=== PATIENT | female | born 1955 | race Caucasian/White ===

== ENCOUNTER 2016-09-18 18:50 | Outpatient (CLI) | payer OTHER ==
--- NOTE | 2016-09-18 21:40 | Ultrasound Preliminary Report ---
Exam: US Duplex Ext Veins Bilateral IMPRESSION: No evidence for deep venous thrombosis bilaterally. [facility] SITE ID: [id number]
--- NOTE | 2016-09-18 21:43 | Ultrasound Report ---
EXAM: BILATERAL LOWER EXTREMITY VENOUS ULTRASOUND EXAM DATE: 09/18/2016 07:49 PM. CLINICAL HISTORY: PAINFUL BILATERAL LOWER EXTREMITY PITTING EDEMA. COMPARISON: None. TECHNIQUE: Real-time sonographic vascular imaging was performed by the hospice volunteer coordinator through the lower extremities utilizing both color-flow and Doppler spectral analysis. Multiple practice representative static i mages were saved for review. FINDINGS: Right: Common Femoral Vein (CFV): Normal. CFV-GSV Junction: Normal. Profunda Femoral Vein (PFV): Normal. Femoral Vein (FV) Prox: Normal. Femoral Vein (FV) Mid: Normal. Femoral Vein (FV) Dist: Normal. Popliteal Vein: Normal. Posterior Tibial Veins: Normal. Peroneal Veins: Normal. Left: Common Femoral Vein (CFV): Normal. CFV-GSV Junction: Normal. Profunda Femoral Vein (PFV): Normal. Femoral Vein (FV) Prox: Normal. Femoral Vein (FV) Mid: Normal. Femoral Vein (FV) Dist: Normal. Popliteal Vein: Normal. Posterior Tibial Veins: Normal. Peroneal Veins: Normal. Other: None. IMPRESSION: No evidence for deep venous thrombosis bilaterally. [facility] Referring Provider Line: [phone] SITE ID: [id number]
== END 2016-09-18 18:51 | disposition home or self-care (01) ==
LOC: DI 18:50
DX: R60.0 Localized edema (principal); M79.662 Pain in left lower leg; M79.661 Pain in right lower leg
CPT/HCPCS: 93970

== ENCOUNTER 2017-01-10 07:45 | Outpatient (CLI) | payer OTHER ==
[2017-01-10] MEDS ORDERED: GADOBUTROL 10 MMOL/10 ML VIAL ONE (08:03)
== END 2017-01-10 07:46 | disposition home or self-care (01) ==
LOC: DI 07:45
PROVIDERS: ATTEND Internal Medicine Rheumatology
DX: Z53.9 Procedure and treatment not carried out, unspecified reason (principal)

== ENCOUNTER 2017-02-21 19:40 | Emergency (ER) | payer OTHER ==
[2017-02-21 20:02] LABS: BASOPHILS % (AUTO) 0.4 %; EOSINOPHILS # (AUTO) 0.1 10^3/uL (0.0-0.7); EOSINOPHILS % (AUTO) 1.6 %; HGB - HEMOGLOBIN 14.7 g/dL (12.0-16.0); LYMPHOCYTES # (AUTO) 2.2 10^3/uL (1.5-3.5); LYMPHOCYTES % (AUTO) 30.4 %; MEAN CORPUSCULAR HEMOGLOBIN 28.3 pg (27.0-31.0); MEAN CORPUSCULAR HGB CONC 33.6 g/dL (32.0-36.0); MEAN CORPUSCULAR VOLUME 84.2 fL (81.0-99.0); MEAN PLATELET VOLUME 7.7 fL (7.9-10.8); MONOCYTES # (AUTO) 0.6 10^3/uL (0.0-1.0); MONOCYTES % (AUTO) 8.1 %; NEUTROPHILS # (AUTO) 4.4 10^3/uL (1.5-6.6); NEUTROPHILS % (AUTO) 59.5 %; PLT - PLATELET COUNT 217 10^3/uL (130-450); RED BLOOD COUNT 5.21 10^6/uL (4.20-5.40); RED CELL DISTRIBUTION WIDTH 13.7 % (12.0-15.0); WHITE BLOOD COUNT 7.3 x10^3/uL (4.8-10.8)
[2017-02-21 20:15] LABS: ALBUMIN 4.1 g/dL (3.2-5.5); ALBUMIN/GLOBULIN RATIO 1.2 (1.0-2.2); BILIRUBIN,TOTAL 0.4 mg/dL (0.2-1.0); CALCIUM 9.7 mg/dL (8.5-10.3); CREATININE 0.8 mg/dL (0.4-1.0); TOTAL PROTEIN 7.5 g/dL (6.7-8.2)
[2017-02-21] MEDS ORDERED: IOPAMIDOL-300 100 ML VIAL ONE (20:54)
[2017-02-21] MEDS ORDERED: IOPAMIDOL-300 100 ML VIAL IVP ONE (22:04)
--- NOTE | 2017-02-21 22:27 | CT Report ---
EXAM: CT ANGIOGRAM CHEST EXAM DATE: 02/21/2017 10:09 PM. CLINICAL HISTORY: Chest pain, elevated dimer. COMPARISON: None. TECHNIQUE: Routine helical imaging was performed through the chest in the pulmonary arterial phase. I V Contrast: 80 cc Isovue 300. Reconstructions: Coronal 3-D MIP reconstructions.Sagittal and coronal. In accordance with CT protocol optimization, one or more of the following dose reduction techniques w ere utilized for this exam: automated exposure control, adjustment of mA and/or KV based on patient s ize, or use of iterative reconstructive technique. FINDINGS: Pulmonary Arteries: Diagnostic quality: Suboptimal through the segmental arteries secondary to missed timing of contrast bolus and respiratory motion artifact. Only a large central embolus can be excluded. Segmental branch vessels are inadequately assessed. RV/LV is within normal limits. There is no interventricular septal bowing. There is no reflux of cont rast material in the IVC. Lungs/Pleura: No consolidation, nodules, or edema. No effusions or pneumothorax. Mediastinum: Normal. No cardiac enlargement or adenopathy. Thoracic Aorta: Unremarkable. Upper Abdomen: Unremarkable. Other: None. IMPRESSION: 1. Suboptimal CTA chest secondary to timing of contrast bolus and respiratory motion artifact. Only a large central embolus is excluded. 2. No evidence of thoracic aortic dissection. 3. Lungs demonstrate no acute infiltrate. [facility] Referring Provider Line: [phone] SITE ID: [id number]
--- NOTE | 2017-02-21 22:58 | ED Physician Documentation ---
PD HPI CHEST PAIN - Stated complaint Stated Complaint: CHEST PX - Chief complaint Chief Complaint: Cardiac - History obtained from History obtained from: Patient, Family - History of Present Illness Timing - onset: Yesterday Timing - details: Gradual onset, Still present Quality: Pressure, Aching Location: Substernal, Left chest Worsened by: Movement, Palpation, Position Associated symptoms: No: Shortness of air, Diaphoresis, Nausea Similar symptoms before: No diagnosis Recently seen: Not recently seen - Additional information Additional information: Patient is a 61 year old female presenting to the emergency department for chest pain. patient states that for the last few days she has had left sided chest pain. Patient states that it is sharp in nature and that it gets worse with inhalation, and palpation. patient denies any trauma or new physical activity. Patient states that she did have some leg swelling and had an elevated d-dimer, but had negative ultrasound studies. Review of Systems Constitutional: denies: Fever, Chills Eyes: reports: Reviewed and negative Ears: reports: Reviewed and negative Nose: reports: Reviewed and negative Throat: denies: Reviewed and negative Cardiac: reports: Chest pain / pressure. denies: Palpitations, Pedal edema, Calf pain Respiratory: denies: Dyspnea, Cough, Wheezing GI: denies: Nausea, Vomiting : reports: Reviewed and negative Skin: denies: Rash Musculoskeletal: reports: Extremity swelling. 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 - Present Medications Home Medications: Ambulatory Orders Medication Instructions Recorded Confirmed Atorvastatin [Lipitor] 20 mg PO DAILY 11/11/16 11/11/16 Estrogens,Esterified [Menest] 0.625 mg PO DAILY 11/11/16 11/11/16 - Allergies Allergies/Adverse Reactions: Allergies Allergy/AdvReac Type Severity Reaction Status Date / Time erythromycin base Allergy Hives Verified 02/21/17 19:54 - Social History Does the pt smoke?: No Smoking Status: Never smoker Does the pt drink ETOH?: No Does the pt have substance abuse?: No - Immunizations Immunizations are current?: Yes PD ED PE NORMAL - Vitals Vital signs reviewed: Yes - General General: Alert and oriented X 3, No acute distress - HEENT HEENT: Atraumatic, PERRL, Moist mucous membranes - Neck Neck: Supple, no meningeal sign, No JVD - Cardiac Cardiac: RRR, No murmur, No rub - Respiratory Respiratory: No respiratory distress, Clear bilaterally - Abdomen Abdomen: Soft, Non tender, Non distended - Derm Derm: Normal color, Warm and dry, No rash - Extremities Extremities: No deformity, Normal ROM s pain - Neuro Neuro: Alert and oriented X 3, No motor deficit, No sensory deficit, Normal speech PD ED PE EXPANDED - Cardiac Cardiac: Chest wall TTP (tenderness to palpation of left chest, no ecchymosis no gross deformity) Results - Vitals Vitals: Vital Signs - 24 hr 02/21/17 02/21/17 02/21/17 19:40 20:09 22:32 Temperature 36.7 C 36.3 C L Heart Rate 100 86 75 Respiratory 20 18 12 Rate Blood Pressure 180/93 H 172/81 H 177/81 H O2 Saturation 100 100 98 02/21/17 23:00 Temperature Heart Rate 71 Respiratory 16 Rate Blood Pressure 136/77 H O2 Saturation 98 Oxygen O2 Source Room air - EKG (time done) 1951 Rate: Rate (enter#) (95) Rhythm: NSR, Wide complex tachycardia Intervals: Normal RI, 2nd degree AVB type 1 Ischemia: Normal ST segments Compare to prior EKG: Old EKG unavailable - Labs Labs: Laboratory Tests 02/21/17 02/21/17 02/21/17 19:50 19:50 19:50 WBC 7.3 RBC 5.21 Hgb 14.7 Hct 43.9 MCV 84.2 MCH 28.3 MCHC 33.6 RDW 13.7 Plt Count 217 MPV 7.7 L Neut # 4.4 Lymph # 2.2 [place] # 0.6 Eos # 0.1 Baso # 0.0 Absolute Nucleated RBC 0.01 Nucleated RBC % 0.1 Sodium 141 Potassium 4.1 Chloride 104 Carbon Dioxide 30 Anion Gap 7.0 BUN 22 H Creatinine 0.8 Estimated GFR (MDRD) 73 L Glucose 120 H Calcium 9.7 Total Bilirubin 0.4 AST 27 ALT 23 Alkaline Phosphatase 73 Troponin I < 0.04 Total Protein 7.5 Albumin 4.1 Globulin 3.4 Albumin/Globulin Ratio 1.2 Lipase 25 - Rads (name of study) ct angio chest Radiology: Final report received (poor study, no PE ) PD MEDICAL DECISION MAKING - ED course Complexity details: reviewed old records, reviewed results, re-evaluated patient , considered differential, d/w patient, d/w family ED course: Patient was seen and examined at bedside. IV access was gained and labs were drawn. ekg was performed and was within normal limits. due to patient's history of elevated d-dimer and CT angio was ordered. When patient returned from imaging the results were reviewed. Patient's diagnostics were within normal limits. Patient's HEART score was 1. Patient required no further work up and was stable for discharge with outpatient follow up. Departure - Departure Disposition: 01 Home, Self Care Clinical Impression: Atypical chest pain Condition: Good Instructions: ED Chest Pain NonCardiac Follow-Up: Noah Gonzalez MD [Primary Care Provider] - Within 3 Days Comments: Your diagnostics today were within normal limits. there were no acute abnormalities indicating that your pain is unlikely cardiac or pulmonary in nature. That being said it is a snap shot in time and you should follow up with your pmd for an echo and a stress test. You should take motrin or tylenol as needed for pain. Your blood pressure was slightly elevated today and you should continue to monitor it. You will need to follow up with your pmd for further evaluation and care. Discharge Date/Time: 02/21/17 23:07
[2017-02-21 23:01] VITALS: BP 136/77
== END 2017-02-21 23:07 | disposition home or self-care (01) ==
LOC: ED 19:40
DX: R07.89 Other chest pain (principal); E78.00 Pure hypercholesterolemia, unspecified; M79.7 Fibromyalgia; M19.90 Unspecified osteoarthritis, unspecified site
CPT/HCPCS: 36415; 71275; 80053; 83690; 84484; 85025; 93005; 99283; 99285; Q9967

== ENCOUNTER 2018-05-10 08:50 | Emergency (ER) | payer OTHER ==
[2018-05-10 09:13] VITALS: BP 142/69
--- NOTE | 2018-05-10 10:05 | XRAY Report ---
Reason: injury Procedure Date: 05/10/2018 Accession Number: [id number] / [id number] Procedure: XR - Hand 3 View RT CPT Code: FULL RESULT: EXAM: RIGHT HAND RADIOGRAPHY EXAM DATE: 05/10/2018 09:40 AM. CLINICAL HISTORY: Injury. COMPARISON: None. TECHNIQUE: 3 views. FINDINGS: Bones: Small intra-articular corner fracture proximal metaphysis fifth distal phalanx, radial aspect. Fracture fragment is roughly a millimeter in size. Overlying irregularity to the nailbed. No additional fractures appreciated. Joints: Normal. No subluxations. Soft Tissues: Normal. No soft tissue swelling. IMPRESSION: Small intra-articular corner fracture proximal metaphysis fifth distal phalanx as described. [facility]
--- NOTE | 2018-05-10 13:10 | ED Physician Documentation ---
PD HPI UPPER EXT INJURY - Stated complaint Stated Complaint: LEFT FINGER INJ - Chief complaint Chief Complaint: Ext Problem - Additonal information Additional information: 63-year-old female presents the emergency department with right little finger injury which occurred just prior to arrival. The patient slammed the door on her finger. No other area of injury. Symptoms are described as moderate. No other associated symptoms Review of Systems Constitutional: denies: Fever, Fatigue Eyes: denies: Discharge Ears: denies: Ear pain Nose: denies: Congestion Cardiac: denies: Chest pain / pressure Musculoskeletal: reports: Extremity pain, Joint pain. 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 - Present Medications Home Medications: Ambulatory Orders Medication Instructions Recorded Confirmed Atorvastatin [Lipitor] 20 mg PO DAILY 11/11/16 11/11/16 Estrogens,Esterified [Menest] 0.625 mg PO DAILY 11/11/16 11/11/16 Hydrocodone/Acetaminophen [[place] 1 each PO Q6HR PRN #7 tablet 05/10/18 5-325 Tablet] - Allergies Allergies/Adverse Reactions: Allergies Allergy/AdvReac Type Severity Reaction Status Date / Time erythromycin base Allergy Hives Verified 05/10/18 09:13 - Social History Does the pt smoke?: No Smoking Status: Never smoker Does the pt drink ETOH?: No Does the pt have substance abuse?: No - Immunizations Immunizations are current?: Yes PD ED PE NORMAL - General General: Alert and oriented X 3, No acute distress - HEENT HEENT: Atraumatic, PERRL, EOMI, Ears normal - Derm Derm: Normal color - Extremities Extremities: No: No deformity, No tenderness to palpate (The patient has tenderness to palpation of the right little finger distally. There is no injury to the nail or nailbed. The patient has normal range of motion. The patient has no tenderness of any of the other digits on the right hand. There is no erythematous changes. The patient has no tenderness of the wrist or anterior snuffbox. Normal radial pulse and normal cap refill) - Neuro Neuro: Alert and oriented X 3, Normal speech - Psych Psych: Normal mood Results - Vitals Vitals: Vital Signs - 24 hr 05/10/18 09:10 Temperature 36.8 C Heart Rate 75 Respiratory 18 Rate Blood Pressure 142/69 H O2 Saturation 99 Oxygen O2 Source Room air - Rads (name of study) XR Hand Radiology: Final report received, See rad report (IMPRESSION: Small intra- articular corner fracture proximal metaphysis Fifth distal phalanx) PD MEDICAL DECISION MAKING - ED course ED course: The patient has an acute fracture, she will be splinted and appears appropriate for outpatient management. The patient will follow up with orthopedics and will return to the emergency department for any worsening or any concerns. Departure - Departure Disposition: Home, Self Care Clinical Impression: Phalanx, distal fracture of finger Qualifiers: Encounter type: initial encounter Finger: unspecified finger Fracture type: closed Fracture alignment: nondisplaced Qualified Code(s): S62.669A - Nondisplaced fracture of distal phalanx of unspecified finger, initial encounter for closed fracture Condition: Good Instructions: ED Fx Finger Closed Ch Follow-Up: [facility] [Provider Group] - Within 1 week (Call to schedule an appointment ) Prescriptions: Hydrocodone/Acetaminophen [[place] 5-325 Tablet] 1 each PO Q6HR PRN #7 tablet PRN Reason: Pain Comments: Please return to the emergency department for worsening symptoms or any concerns
== END 2018-05-10 13:29 | disposition home or self-care (01) ==
LOC: ED 08:50
DX: S62.666A Nondisplaced fracture of distal phalanx of right little finger, initial encounter for closed fracture (principal); W23.0XXA Caught, crushed, jammed, or pinched between moving objects, initial encounter
CPT/HCPCS: 99283

== ENCOUNTER 2018-10-27 12:41 | Outpatient (CLI) | payer OTHER ==
--- NOTE | 2018-10-27 16:59 | Mammography Report ---
Reason: SCREENING MAMMO Procedure Date: 10/27/2018 Accession Number: [id number] / [id number] Procedure: TEMO - Screening Mammo w/Marcel CPT Code: FULL RESULT: EXAM: Screening Mammo w/Marcel DATE: 10/27/2018 1:23 PM CLINICAL HISTORY: Routine screening. History of benign biopsy TECHNIQUE: (B) - Bilateral CC and MLO views were obtained. COMPARISON: 09/29/2014, 10/03/2013, 09/13/2012 and 09/10/2011 PARENCHYMAL PATTERN: (A) - The breasts demonstrate scattered fibroglandular densities bilaterally. FINDINGS: No significant interval change. There are no suspicious masses, calcifications, skin thickening, or areas of distortion. IMPRESSION: Negative examination. BI-RADS category 1. RECOMMENDATION: (ANNUAL) - Recommend routine annual screening mammography. BI-RADS CATEGORY: (1) - Negative. STANDARD QUALIFYING STATEMENTS: 1. This examination was not reviewed with the aid of Computer-Aided Detection (CAD). 2. A negative or benign imaging report should not preclude biopsy if clinically suspicious findings are present. 3. Dense breasts may obscure an underlying neoplasm. 4. This examination was reviewed with the aid of 3D breast imaging (tomosynthesis).
== END 2018-10-27 12:42 | disposition home or self-care (01) ==
LOC: DI 12:41
DX: Z12.31 Encounter for screening mammogram for malignant neoplasm of breast (principal)
CPT/HCPCS: 77063; 77067

== ENCOUNTER 2020-01-27 08:00 | Outpatient (CLI) | payer OTHER | END 2020-01-27 08:01 | disposition home or self-care (01) | LOC: COV 08:00 | PROVIDERS: ATTEND Ophthalmology | DX: Z01.812 Encounter for preprocedural laboratory examination (principal); H25.11 Age-related nuclear cataract, right eye; Z20.828 Contact with and (suspected) exposure to other viral communicable diseases ==

== ENCOUNTER 2020-02-02 08:31 | Day surgery (SDC) | payer OTHER ==
[~2020-02-02 08:31] MED LIST: KETOROLAC 0.45% OPHTH DROPS ONE; PHENYLEPHRINE 2.5% OPHTH 2 ML DROPS ONE; PROPARACAINE 0.5% OPHTH DROPS 15 ML ONE
[2020-02-02] MEDS ORDERED: LACTATED RINGERS 500 ML IV ONE (09:24)
--- NOTE | 2020-02-02 09:41 | ANESTHESIA ---
Pre-Anesthesia VS, & Labs - Diagnosis R nuclear sclerotic cataract - Procedure R extraction cataract w/IOL Vital Signs: Temp Pulse Resp BP Pulse Ox 36.3 C L 57 L 17 138/76 H 100 02/02/20 09:00 02/02/20 09:00 02/02/20 09:00 02/02/20 09:00 02/02/20 09:00 Height: 5 ft 10 in Weight (kg): 87.8 kg Body Mass Index: 27.8 BMI Classification: Overweight - NPO >8 hours - Is Patient ?: No Home Medications and Allergies Home Medications: Ambulatory Orders amLODIPine [Norvasc] 5 mg PO DAILY 02/01/20 Atorvastatin [Lipitor] 20 mg PO DAILY 11/11/16 Estrogens,Esterified [Menest] 0.625 mg PO DAILY 11/11/16 amLODIPine [Norvasc] 5 mg PO DAILY 02/01/20 Allergies/Adverse Reactions: Allergies Allergy/AdvReac Type Severity Reaction Status Date / Time erythromycin base Allergy Hives Verified 02/01/20 14:51 Anes History & Medical History - Anesthetic History Anesthesia Complications: reports: No previous complications Family history of Anesthesia Complications: Denies Family history of Malignant Hyperthermia: Denies - Medical History Cardiovascular: reports: Hypertension, High cholesterol Pulmonary: reports: None Gastrointestinal: reports: None Urinary: reports: None Musculoskeletal: reports: Fibromyalgia Endocrine/Autoimmune: reports: None Skin: reports: Rosacea Smoking Status: Never smoker - Surgical History Gynecologic: Hysterectomy Exam General: Alert, Oriented x3, Cooperative Dental: WNL Mouth Opening: Greater than 4 Fingerbreadths Neck Mobility: Normal Mallampati classification: II Thyromental Distance: 4-6 cm Respiratory: Lungs clear, Normal breath sounds Cardiovascular: Regular rate Neurological: Normal speech Mental/Cognitive Status: Alert/Oriented X3, Normal for patient Plan Anesthesia Type: MAC Consent for Procedure(s) Verified and Reviewed: Yes Code Status: Attempt Resuscitation ASA classification: 2-Mild systemic disease Is this case an emergency?: No
[2020-02-02] MEDS ORDERED: MIDAZOLAM 2 MG/2 ML VIAL IVP ONE (09:44)
[2020-02-02] MEDS ORDERED: TRIAMCIN/MOXIFLOX OPHTHALMIC 0.6 ML VIAL IO ONE ×2 (09:49→11:25)
[2020-02-02] MEDS ORDERED: TIMOLOL 0.5% OPHTH DROPS OPTH ONE (09:49)
[2020-02-02] MEDS ORDERED: EPINEPHrine 1 MG/ML AMP IR ONE (09:49)
[2020-02-02] MEDS ORDERED: BRIMONIDINE 0.2% OPHTH DROPS 5 ML OPTH ONE (09:49)
[2020-02-02] MEDS ORDERED: CHONDR SULF/HYALURONATE SYRINGE IO ONE (09:49)
[2020-02-02] MEDS ORDERED: PROPARACAINE 0.5% OPHTH DROPS 15 ML EACHEYE ONE (09:49)
[2020-02-02] MEDS ORDERED: VANCOMYCIN OPHTHALMI 8MG/0.8ML 8 MG/0.8 ML SYRINGE IO ONE ×2 (09:49→11:26)
[2020-02-02] MEDS ORDERED: BSS/LIDOCAINE/EPINEPHRINE 1 ML SYRINGE IO ONE (09:49)
[2020-02-02] MEDS ORDERED: LACTATED RINGERS 300 ML IV ONE (10:02)
[2020-02-02 10:07] VITALS: BP 128/66
[2020-02-02] MEDS ORDERED: BSS/LIDOCAINE/EPINEPHRINE 1 ML SYRINGE ONE (11:26)
[2020-02-02] MEDS ORDERED: TIMOLOL 0.5% OPHTH DROPS ONE (11:26)
[2020-02-02] MEDS ORDERED: EPINEPHrine 1 MG/ML AMP ONE (11:26)
[2020-02-02] MEDS ORDERED: BRIMONIDINE 0.2% OPHTH DROPS 5 ML ONE (11:26)
--- NOTE | 2020-02-02 11:32 | OPERATIVE REPORT ---
DATE OF SERVICE: 02/02/2020 Physician: Toribio Bean MD PREOPERATIVE DIAGNOSIS: Visually significant cataract, right eye. This was her first cataract surge ry. POSTOPERATIVE DIAGNOSIS: Visually significant cataract, right eye. This was her first cataract surg wesley. PROCEDURE: Phacoemulsification with posterior chamber intraocular lens implant, right eye. SURGEON: Toribio Bean MD. ANESTHESIA: Monitored anesthesia care. COMPLICATIONS: None. OPERATIVE INDICATIONS: This is a 64-year-old woman with progressive vision loss in her right eye due to 2+ nuclear sclerotic cataract. Best corrected visual acuity was 20/40 with glare to 20/400 in he r right eye. Indications for surgery are overall decrease in vision, difficulty seeing words on a [employer] screen, difficulty reading, difficulty seeing words, closed caption or game scores on TV, diff iculty seeing street signs, difficulty driving in low light or at night, difficulty driving at night because of headlights from other vehicles, and difficulty with glare or bright lights in any situatio n. She was consented at length concerning risks and benefits of cataract surgery, after which she ex pressed a desire to proceed with surgery. OPERATIVE PROCEDURE: The patient was taken in to OR #3 and placed under monitored anesthesia care. A surgical timeout was conducted confirming correct patient, correct procedure, and correct surgical site. She was given topical anesthesia and prepped and draped in usual sterile fashion. The eye was entered at the 12 and 9 o'clock positions. Intracameral Shugarcaine was injected into the anterior chamber followed by Viscoat. A continuous-tear curvilinear capsulorrhexis was performed. The nucleu s was hydrodissected and phacoemulsified. The cortex was evacuated using automated infusion and aspi ration. Provisc was injected in the capsular bag and a 20.0 diopter intraocular lens inserted into t he bag. Infusion and aspiration were used to evacuate the viscoelastic materials. The eye was infla vanadna to physiologic pressure using balanced salt solution and found to be watertight. Approximately 0 .25 mL of a mixture of triamcinolone and moxifloxacin was injected transsclerally into the vitreous i n the inferotemporal quadrant. An additional 0.55 mL of a mixture of triamcinolone, moxifloxacin, an d vancomycin was injected subconjunctivally in the superior quadrant for infection and inflammation p rophylaxis. Wound integrity was checked with Weck-Brit sponges. The patient was taken from the opera tin room in good condition and given postoperative instructions. TD: 02/02/2020 10:11
--- NOTE | 2020-02-02 12:06 | ANESTHESIA POST OP EVALUATION ---
Anesthesia Post Eval - Post Anesthesia Eval Vitals: Last Vital Signs Temp 36.0 C L 02/02/20 10:02 Pulse 62 02/02/20 10:02 Resp 14 02/02/20 10:02 BP 128/66 02/02/20 10:02 Pulse Ox 100 02/02/20 10:02 CV Function Including HR & BP: positive: Stable Pain Control: positive: Satisfactory Nausea & Vomiting: positive: Negative Mental Status: positive: Baseline Respiratory Status: Airway Patent Hydration Status: Satisfactory Anesthesia Complications: positive: None
== END 2020-02-02 08:32 | disposition home or self-care (01) ==
LOC: SDS 08:31
PROVIDERS: ATTEND Ophthalmology
DX: H25.11 Age-related nuclear cataract, right eye (principal); I10 Essential (primary) hypertension
CPT/HCPCS: 66984; A9270; J3490; J7120; V2632

== ENCOUNTER 2020-02-23 17:07 | Outpatient (CLI) | payer OTHER | END 2020-02-23 17:08 | disposition home or self-care (01) | LOC: COV 17:07 | PROVIDERS: ATTEND Ophthalmology | DX: Z01.812 Encounter for preprocedural laboratory examination (principal); H25.12 Age-related nuclear cataract, left eye; Z20.828 Contact with and (suspected) exposure to other viral communicable diseases ==

== ENCOUNTER 2020-03-01 08:56 | Day surgery (SDC) | payer OTHER ==
[~2020-03-01 08:56] MED LIST changes: +BRIMONIDINE 0.2% OPHTH DROPS 5 ML ONE; +BSS/LIDOCAINE/EPINEPHRINE 1 ML SYRINGE ONE; +EPINEPHrine 1 MG/ML AMP ONE; +TIMOLOL 0.5% OPHTH DROPS ONE; +TRIAMCIN/MOXIFLOX OPHTHALMIC 0.6 ML VIAL IO ONE; +VANCOMYCIN OPHTHALMI 8MG/0.8ML 8 MG/0.8 ML SYRINGE IO ONE
[2020-03-01] MEDS ORDERED: MIDAZOLAM 2 MG/2 ML VIAL ONE (09:09)
--- NOTE | 2020-03-01 09:23 | ANESTHESIA ---
Pre-Anesthesia VS, & Labs - Diagnosis left eye cataract - Procedure left eye catiol Vital Signs: Temp Pulse Resp BP Pulse Ox 35.6 C L 55 L 14 161/80 H 100 03/01/20 09:04 03/01/20 09:04 03/01/20 09:04 03/01/20 09:04 03/01/20 09:04 Height: 5 ft 9 in Weight (kg): 88.9 kg Body Mass Index: 28.9 BMI Classification: Overweight - NPO >8 hours - Is Patient ?: No - Lab Results Lab results reviewed: Yes Home Medications and Allergies Atorvastatin [Lipitor] 20 mg PO DAILY 11/11/16 Estrogens,Esterified [Menest] 0.625 mg PO DAILY 11/11/16 amLODIPine [Norvasc] 5 mg PO DAILY 02/01/20 Allergies/Adverse Reactions: Allergies Allergy/AdvReac Type Severity Reaction Status Date / Time erythromycin base Allergy Hives Verified 02/01/20 14:51 Anes History & Medical History - Anesthetic History Anesthesia Complications: reports: No previous complications Family history of Anesthesia Complications: Denies Family history of Malignant Hyperthermia: Denies - Medical History Cardiovascular: reports: High cholesterol, Murmur Pulmonary: reports: None Gastrointestinal: reports: Hiatal hernia Urinary: reports: None Musculoskeletal: reports: Osteoarthritis, Fibromyalgia Skin: reports: None, Other Smoking Status: Never smoker - Surgical History Gynecologic: Hysterectomy Exam General: Alert, Oriented x3, Cooperative, No acute distress Dental: WNL Mouth Openin Fingerbreadth Neck Mobility: Normal Mallampati classification: II Respiratory: Lungs clear, Normal breath sounds, No respiratory distress, No accessory muscle use Cardiovascular: Regular rate, Normal S1, Normal S2 Plan Anesthesia Type: MAC Consent for Procedure(s) Verified and Reviewed: Yes Code Status: Attempt Resuscitation ASA classification: 2-Mild systemic disease Is this case an emergency?: No
[2020-03-01] MEDS ORDERED: ATROPINE ABBOJECT 1 MG/10 ML SYRINGE IVP PRN (09:24)
[2020-03-01] MEDS ORDERED: METOCLOPRAMIDE 10 MG/2 ML VIAL IVP PRN (09:24)
[2020-03-01] MEDS ORDERED: MORPHINE 2 MG/ML CARPUJECT IVP PRN (09:24)
[2020-03-01] MEDS ORDERED: NALOXONE 0.4 MG/ML VIAL IVP PRN (09:24)
[2020-03-01] MEDS ORDERED: ONDANSETRON 4 MG/2 ML VIAL IVP PRN (09:24)
[2020-03-01] MEDS ORDERED: ePHEDrine 50 MG/ML VIAL IVP PRN (09:24)
[2020-03-01] MEDS ORDERED: fentaNYL 100 MCG/2 ML VIAL IVP PRN (09:24)
[2020-03-01] MEDS ORDERED: HYDROmorphone 0.5 MG/0.5 ML SYRINGE IVP PRN (09:24)
[2020-03-01] MEDS ORDERED: EPINEPHrine 1 MG/ML AMP IR ONE (09:40)
[2020-03-01] MEDS ORDERED: BRIMONIDINE 0.2% OPHTH DROPS 5 ML OPTH ONE (09:40)
[2020-03-01] MEDS ORDERED: BSS/LIDOCAINE/EPINEPHRINE 1 ML SYRINGE IO ONE (09:41)
[2020-03-01] MEDS ORDERED: TIMOLOL 0.5% OPHTH DROPS OPTH ONE (09:41)
[2020-03-01] MEDS ORDERED: CHONDR SULF/HYALURONATE SYRINGE IO ONE (09:41)
[2020-03-01] MEDS ORDERED: TRIAMCIN/MOXIFLOX OPHTHALMIC 0.6 ML VIAL IO ONE ×2 (09:42→11:01)
[2020-03-01] MEDS ORDERED: PROPARACAINE 0.5% OPHTH DROPS 15 ML EACHEYE ONE (09:42)
[2020-03-01] MEDS ORDERED: VANCOMYCIN OPHTHALMI 8MG/0.8ML 8 MG/0.8 ML SYRINGE IO ONE (09:42)
[2020-03-01] MEDS ORDERED: LACTATED RINGERS 500 ML IV ONE (09:50)
--- NOTE | 2020-03-01 09:59 | ANESTHESIA POST OP EVALUATION ---
Anesthesia Post Eval - Post Anesthesia Eval Vitals: Last Vital Signs Temp 35.6 C L 03/01/20 09:04 Pulse 55 L 03/01/20 09:04 Resp 14 03/01/20 09:04 BP 161/80 H 03/01/20 09:04 Pulse Ox 100 03/01/20 09:04 CV Function Including HR & BP: positive: Stable Pain Control: positive: Satisfactory Nausea & Vomiting: positive: Negative Mental Status: positive: Patient Participates Respiratory Status: Airway Patent Hydration Status: Satisfactory Anesthesia Complications: positive: None
[2020-03-01] MEDS ORDERED: LACTATED RINGERS 1,000 ML IV SCH (10:00)
--- NOTE | 2020-03-01 10:39 | OPERATIVE REPORT ---
DATE OF SERVICE: 03/01/2020 Physician: Toribio Bean MD PREOPERATIVE DIAGNOSIS: Visually significant cataract, left eye. Cataract surgery was performed on the right eye on 02/02/2020. POSTOPERATIVE DIAGNOSIS: Visually significant cataract, left eye. Cataract surgery was performed on the right eye on 02/02/2020. PROCEDURE: Phacoemulsification with posterior chamber intraocular lens implant, left eye. SURGEON: Toribio Bean MD. ANESTHESIA: Monitored anesthesia care. COMPLICATIONS: None. OPERATIVE INDICATIONS: This is a 64-year-old woman with progressive vision loss in the left eye due to 2+ nuclear sclerotic cataract. Best corrected visual acuity was 20/30 with glare to 20/400 in the left eye. Indications for surgery were difficulty seeing words on a computer screen, difficulty danae ding, difficulty seeing street signs, difficulty driving in low light or at night, difficulty driving at night because of headlights from other vehicles, and difficulty with glare or bright lights in an y situation. She was consented at length concerning risks and benefits of cataract surgery, after wh ich she expressed a desire to proceed with surgery. OPERATIVE PROCEDURE: The patient was taken in to OR #3 and placed under monitored anesthesia care. A surgical timeout was conducted, confirming correct patient, correct procedure, and correct surgical site. She was given topical anesthesia and prepped and draped in the usual sterile fashion. The ey e was entered at the 6 and 3 o'clock positions. Intracameral Shugarcaine was injected into the anter ior chamber followed by Viscoat. A continuous-tear curvilinear capsulorrhexis was performed. The nu cleus was hydrodissected and phacoemulsified. The cortex was evacuated using automated infusion and aspiration. Provisc was injected in the capsular bag, and a 20.5 diopter intraocular lens was insert ed into the bag. Infusion and aspiration were used to evacuate the viscoelastic materials. The eye was inflated to physiologic pressure using balanced salt solution and found to be watertight. Approx imately 0.25 mL of a mixture of triamcinolone and moxifloxacin was injected transsclerally into the v itreous in the inferotemporal quadrant. An additional 0.55 mL of a mixture of triamcinolone, moxiflo xacin, and vancomycin was injected subconjunctivally in the superior quadrant for infection and infla mmation prophylaxis. Wound integrity was checked with Weck-Brit sponges. The patient was taken from the operating room in good condition and given postoperative instructions. TD: 03/01/2020 10:34
[2020-03-01 11:51] VITALS: BP 137/77
--- OUTSIDE RECORDS SUMMARY | 2020-03-07 01:02 | EXTERNAL MEDICAL SUMMARY RPT | Continuity of Care Document ---
:1955 Demographics Phone Unavailable Preferred Language Unknown Marital Status Unknown Pent[employer]ism Affiliation Unknown Race Unknown Ethnic Group Unknown Author Organization [employer] Address [address] [place] [address] Phone Care Team Providers Name Role Phone SARGENT Unavailable Unavailable Problems date description facility 2020-02-02 08:31 AGE-RELATED NUCLEAR CATARACT, [facility] RIGHT EYE 2020-02-02 08:31 ESSENTIAL (PRIMARY) HYPERTENSION [facility] 2020-03-01 08:56 AGE-RELATED NUCLEAR CATARACT, LEFT Merged with [facility] EYE 2020-03-01 09:00 AGE-RELATED NUCLEAR CATARACT, LEFT Merged with [facility] EYE Allergies date description facility [facility] DIPHENHYDRAMINE [facility] FLUOXETINE [facility]CL[facility] N[facility]ERIN [facility]ESSIN [facility] VENLAFAXINE [facility] DIPHENHYDRAMINE-APAP (SLEEP) [facility] DI[facility]TIC [facility] FENOPROFEN CALCIUM [facility] O[facility]TOCIN [facility] NO KNOWN ENVIRONMENTAL ALLERGIES [facility] PENICILLINS [facility]ACLOR [facility] POVIDONE-IODINE [facility] NITROFURANTOIN MACROCRYSTAL [facility] No Known Medication Allergies [facility] Results test status date ordered by attending specimen maeve e null F 2020-01-27 MATTHEW.Nehal Bean 2020-01 13:05:00 08:00:00 facility observation status value reference units lab abnor mal line notes range code [facility] F NEGATIVE unknown See [facility] Center s eparate report - Report scanned to Patient' s EMR. Testing performe d at [facility] test status date ordered by attending specimen maeve calin Ramos 2020-02-23 MATTHEW.Nehal Bean 2020-01 16:27:00 12:15:00 facility observation status value reference units lab abnor mal line notes range code [facility] F NEGATIVE unknown [facility] L See separate report - Report scanned to Patient' s EMR. Testing performe d at [facility] Social History date description facility [id number]
== END 2020-03-01 08:57 | disposition home or self-care (01) ==
LOC: SDS 08:56
PROVIDERS: ATTEND Ophthalmology
DX: H25.12 Age-related nuclear cataract, left eye (principal); I10 Essential (primary) hypertension; E78.00 Pure hypercholesterolemia, unspecified; R01.1 Cardiac murmur, unspecified; K44.9 Diaphragmatic hernia without obstruction or gangrene; M79.7 Fibromyalgia; M19.90 Unspecified osteoarthritis, unspecified site; E66.3 Overweight; Z68.28 Body mass index [BMI] 28.0-28.9, adult; Z79.899 Other long term (current) drug therapy
CPT/HCPCS: 66984; A9270; J3490; J7120; V2632

== ENCOUNTER 2020-10-22 09:21 | Outpatient (CLI) | payer OTHER ==
--- NOTE | 2020-10-23 15:25 | Mammography Report ---
BILATERAL DIGITAL SCREENING MAMMOGRAM 3D/2D: 10/22/2020 CLINICAL: Routine screening. Comparison is made to exams dated: 10/21/2019 mammogram, 10/16/2017 ultrasound, 10/16/2017 mammogram - [facility], 10/01/2016 mammogram, 10/01/2015 mammogram - [facility], and [facility]. There are scattered fibroglandular elements in both breasts. There is a possible new 0.9 cm oval equal density asymmetry in the left breast middle depth lateral r egion seen on the craniocaudal view only. No other significant masses, calcifications, or other findings are seen in either breast. IMPRESSION: INCOMPLETE: NEEDS ADDITIONAL IMAGING EVALUATION The possible new 0.9 cm oval equal density asymmetry in the left breast is indeterminate. Additional views with possible ultrasound are recommended. This exam was interpreted at Station ID: [id number]. NOTE: For mammograms, a report in lay terms will be sent to the patient. Approximately 15% of breast malignancies will not be visualized mammographically. In the management of a palpable breast mass, a negative mammogram must not discourage biopsy of a clinically suspicious lesion. Electronically Signed By: Yaya Velez M.D. aty/:10/22/2020 10:57:28 ACR BI-RADS Category 0: Incomplete 3340F PARENCHYMAL PATTERN: (A) - The breast(s) demonstrate(s) scattered fibroglandular densities. BI-RADS CATEGORY: (0) - 0 Mammo and [place] [id number] Immediate follow-up LATERALITY: (L)
== END 2020-10-22 09:22 | disposition home or self-care (01) ==
LOC: DI.N 09:21
DX: Z12.31 Encounter for screening mammogram for malignant neoplasm of breast (principal); R92.8 Other abnormal and inconclusive findings on diagnostic imaging of breast

== ENCOUNTER 2020-11-22 08:52 | Outpatient (CLI) | payer OTHER ==
--- NOTE | 2020-11-23 09:53 | Mammography Report ---
UNILATERAL LEFT DIGITAL DIAGNOSTIC MAMMOGRAM 3D/2D: 11/22/2020 CLINICAL: Patient returns today to evaluate an asymmetry in the left breast. Comparison is made to exams dated: 10/22/2020 mammogram - [facility], 10/21/2019 [facility], and 10/27/2018 mammogram - [facility]. There are scattered fibroglandular elements in left breast. The benign 0.9 cm asymmetry in the left breast middle depth central to the nipple seen on the cranioc audal view only is no longer seen. This is not seen in additional views. No other significant masses or calcifications are seen in the breast. IMPRESSION: BENIGN There is no mammographic evidence of malignancy. A 1 year screening mammogram is recommended. This exam was interpreted at Station ID: [id number]. NOTE: For mammograms, a report in lay terms will be sent to the patient. Approximately 15% of breast malignancies will not be visualized mammographically. In the management of a palpable breast mass, a negative mammogram must not discourage biopsy of a clinically suspicious lesion. Electronically Signed By: Austyn Nathan acr/:11/22/2020 09:20:55 ACR BI-RADS Category 2: Benign Finding(s) 3342F PARENCHYMAL PATTERN: (A) - The breast(s) demonstrate(s) scattered fibroglandular densities. BI-RADS CATEGORY: (2) - 2 RECOMMENDATION: (ANNUAL) - Recommend routine annual screening mammography. [id number] 1 year screening LATERALITY: (B)
== END 2020-11-22 08:53 | disposition home or self-care (01) ==
LOC: DI 08:52
PROVIDERS: ATTEND Family Medicine
DX: R92.8 Other abnormal and inconclusive findings on diagnostic imaging of breast (principal)

== ENCOUNTER 2021-01-03 08:44 | Outpatient (CLI) | payer OTHER ==
--- NOTE | 2021-01-03 14:26 | MRI Report ---
PROCEDURE: Knee LT W/O INDICATIONS: KNEE PAIN TECHNIQUE: Noncontrast sagittal PD fast spin echo and T2 fast spin echo with fat saturation, sagittal 3-D gradie nt sequence with fat saturation; coronal T1 spin echo and PD fast spin echo with fat saturation, and axial PD fast spin echo with fat saturation through the knee. COMPARISON: None. FINDINGS: Image quality: Excellent. Menisci: Peripheral displacement of medial meniscus bowing medial collateral ligament is seen. Obliqu e tear involving posterior horn of medial meniscus extending to inferior articulating surface is note d. There is also suggestion of subtle oblique tear involving anterior horn of lateral meniscus extend ing to superior articulating surface. The meniscal root ligaments appear intact. Cruciate ligaments: The anterior and posterior cruciate ligaments appear intact. Medial structures: Both moderate grade proximal MCL sprain/partial thickness tear is seen. The log truck driver ior oblique ligament, semimembranosus tendon insertions, and oblique popliteal ligament, and meniscoc apsular junction appear intact. Visualized portions of the pes anserinus tendons appear normal. No abnormal bursal fluid. Lateral structures: The lateral collateral ligament, long and short heads of the biceps femoris tend on appear intact. The popliteus tendon appears normal; the popliteofibular ligament appears intact. The posterosuperior and anteroinferior popliteomeniscal fascicles appear intact. The arcuate and fa bellofibular ligaments appear intact, around the lateral inferior geniculate artery. Iliotibial band appears normal. Anterior structures: The quadriceps and patellar tendons appear intact. Patellar alignment is gladis l. No femoral trochlear dysplasia or ventral trochlear prominence. No edema in the infrapatellar fa t pad. Bones and cartilage: No bone marrow contusions or fractures. 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 Joint space: There is moderate amount of joint fluid, no gross intra-articular loose bodies. There i s a small popliteal cyst. Normal appearing synovial plicae are incidentally noted. IMPRESSION: 1. Oblique tear involving posterior horn of medial meniscus extending to inferior articulating surfac e. Oblique tear involving anterior horn of lateral meniscus extending to superior articulating surfac e. 2. Cruciate ligaments are intact. Low to moderate grade MCL sprain/partial thickness tear. 3. Mild to moderate tricompartmental osteoarthritis and chondromalacia most prominent in medial femor al tibial compartment. Moderate amount of joint fluid, no gross loose body. Small popliteal cyst. Reviewed by: Dani Ferrer MD on 01/03/2021 2:24 PM PST Approved by: Dani Ferrer MD on 01/03/2021 2:24 PM PST Station ID: [id number]
== END 2021-01-03 08:45 | disposition home or self-care (01) ==
LOC: DI 08:44
PROVIDERS: ATTEND Family Medicine
DX: S83.242A Other tear of medial meniscus, current injury, left knee, initial encounter (principal); S83.282A Other tear of lateral meniscus, current injury, left knee, initial encounter; S83.412A Sprain of medial collateral ligament of left knee, initial encounter; M17.12 Unilateral primary osteoarthritis, left knee; M94.262 Chondromalacia, left knee; M25.462 Effusion, left knee

== ENCOUNTER 2022-11-26 12:25 | Outpatient (CLI) | payer MEDICARE, OTHER ==
--- NOTE | 2022-11-27 11:18 | Mammography Report ---
BILATERAL DIGITAL SCREENING MAMMOGRAM 3D/2D: 11/26/2022 CLINICAL: Routine screening. Comparison is made to exams dated: 11/22/2020 mammogram, 10/22/2020 mammogram - [facility], 10/21/2019 mammogram - [facility], 10/27/2018 mammogram - [facility], 2017 ultrasound, and 10/16/2017 mammogram - [facility]. There are scattered areas of fibroglandular density in both breasts (category b / 25%-50% glandular t issue). No significant masses, calcifications, or other findings are seen in either breast. There has been no significant interval change. IMPRESSION: NEGATIVE There is no mammographic evidence of malignancy. A 1 year screening mammogram is recommended. Based on the Tyrer Cuzick model (a risk assessment model) the patients lifetime risk is 6.0% and her 10 year risk is 2.9%. According to the ACR, ACS, and NCCN guidelines, an annual breast MRI exam mayank g with mammogram is recommended if the patients lifetime risk is 20% or greater. This exam was interpreted at Station ID: [id number]. NOTE: For mammograms, a report in lay terms will be sent to the patient. Approximately 15% of breast malignancies will not be visualized mammographically. In the management of a palpable breast mass, a negative mammogram must not discourage biopsy of a clinically suspicious lesion. Electronically Signed By: Austyn villa/tiffanie:11/26/2022 17:45:47 letter sent: No_Letter ACR BI-RADS Category 1: Negative 3341F PARENCHYMAL PATTERN: (A) - The breast(s) demonstrate(s) scattered fibroglandular densities. BI-RADS CATEGORY: (1) - 1 Mammogram [id number] 1 year screening LATERALITY: (B)
== END 2022-11-26 12:26 | disposition home or self-care (01) ==
LOC: DI.N 12:25
DX: Z12.31 Encounter for screening mammogram for malignant neoplasm of breast (principal)